=== PATIENT | female | born 1950 | race Caucasian/White ===

== ENCOUNTER → 2016-11-18 | Emergency (ER) | payer MEDICARE, BC ==
[~2016-11-18] VITALS: Ht 154.9 cm; Wt 64.5 kg
[~2016-11-18] MED LIST: ONDANSETRON 2 MG/ML (Z0FRAN) 2 ML VIAL IV ONE; PROMETHAZINE HCL INJ 12.5 MG in SODIUM CHLORIDE 25 ML IV ONE; meTOprolol 5 MG/5 ML (LOPRESSOR) VIAL IV ONE
[2016-11-18 01:27] LABS: BASOPHILS % (AUTO) 0 % (0-2); EOSINOPHILS # (AUTO) 0.3 10^3uL; EOSINOPHILS % (AUTO) 2 % (0-4); LYMPHOCYTES # (AUTO) 4.6 X10^3; MEAN CORPUSCULAR HEMOGLOBIN 29.8 PG (26.0-34.0); MEAN CORPUSCULAR HGB CONC 35.4 g/dL (31.0-37.0); MEAN CORPUSCULAR VOLUME 84 FL (80-100); MEAN PLATELET VOLUME 11.4 FL (6.0-9.5); MONOCYTES % (AUTO) 9 % (3-11); NEUTROPHILS % (AUTO) 46 % (51-67); PLATELET COUNT 305 10^3uL (150-450); WHITE BLOOD COUNT 10.89 10^3uL (4.0-11.0)
[2016-11-18 01:36] LABS: ALKALINE PHOSPHATASE 115 U/L (38-126); ANION GAP 18.8 MEQ/L (3-15); BUN/CREATININE RATIO 25 (10-20); CALCULATED IONIZED CALCIUM 3.9 mg/dL (3.8-4.6); TOTAL PROTEIN 8.7 g/dL (6.4-8.5)
--- NOTE | 2016-11-18 02:31 | NUR ---
Patient more relaxed, talking with family. Stated, "Im feeling better, can still feel my heart skipping beats but not as bad."
[2016-11-18 02:52] VITALS: BP 124/55
== END | disposition short-term general hospital (02) ==
LOC: EDUNIT# 00:14 → ED 00:18
DX: I48.91 Unspecified atrial fibrillation (principal)
CPT/HCPCS: 36415; 71010; 80053; 84443; 84484; 85025; 96365; 96375; 99285; J2405; J2550; 93005; 93010

== ENCOUNTER → 2017-01-15 | Outpatient (CLI) | payer MEDICARE, BC ==
[~2017-01-15] MED LIST changes: +AML2.5T PO; +DOXY-182 PO; +LORA0.5P MC; +LORA0.5T PO; +OMEP20CA6 PO; -ONDANSETRON 2 MG/ML (Z0FRAN) 2 ML VIAL IV ONE; -PROMETHAZINE HCL INJ 12.5 MG in SODIUM CHLORIDE 25 ML IV ONE; -meTOprolol 5 MG/5 ML (LOPRESSOR) VIAL IV ONE
[2017-01-15 11:00] LABS: BASOPHILS % (AUTO) 0 % (0-2); EOSINOPHILS # (AUTO) 0.3 10^3uL; EOSINOPHILS % (AUTO) 5 % (0-4); LYMPHOCYTES # (AUTO) 1.6 X10^3; MEAN CORPUSCULAR HEMOGLOBIN 28.8 PG (26.0-34.0); MEAN CORPUSCULAR VOLUME 88 FL (80-100); MEAN PLATELET VOLUME 10.5 FL (6.0-9.5); MONOCYTES # (AUTO) 0.6 X10^3; MONOCYTES % (AUTO) 9 % (3-11); NEUTROPHILS # (AUTO) 4.5 X10^3; NEUTROPHILS % (AUTO) 63 % (51-67); PLATELET COUNT 264 10^3uL (150-450); WHITE BLOOD COUNT 7.12 10^3uL (4.0-11.0)
[2017-01-15 11:01] LABS: BILIRUBIN,URINE Negative (Negative); CLARITY,URINE Clear; COLOR,URINE Yellow; GLUCOSE, URINE (UA) Negative (Negative); LEUKOCYTE ESTERASE ,URINE Negative (Negative); UROBILINOGEN,URINE 0.2 mg/dL (0.2-1.0)
[2017-01-15 12:18] LABS: ALBUMIN 4.3 g/dL (3.4-5.0); CALCULATED IONIZED CALCIUM 4.1 mg/dL (3.8-4.6); TOTAL PROTEIN 7.3 g/dL (6.4-8.5)
== END ==
LOC: LAB 10:41
PROVIDERS: ATTEND Family Medicine
DX: R53.83 Other fatigue (principal); E03.4 Atrophy of thyroid (acquired)
CPT/HCPCS: 36415; 80053; 81003; 84439; 84443; 85025